=== PATIENT | female | born 1990 | race Two or more races ===

== ENCOUNTER 2024-10-05 22:13 | Inpatient (IN) | payer MEDICAID, SELFPAY ==
[2024-10-05 22:26] VITALS: BP 146/85; PULSE 86; RESP 18; TEMP 36.9; O2SAT 99; BMI 25.3
--- NOTE | 2024-10-05 22:31 | XR_ITS ---
Examination: Abdomen sonogram, Limited Date and time of exam: October 06, 2024 0038 hrs. Indications: Epigastric pain beginning 4 days ago Technique: Real-time riley scale transabdominal sonographic images of the upper abdomen obtained. Findings: Multiple gallstones Normal gallbladder wall Common bile duct enlarged 0.9 cm Pancreatic head 2.3 cm Liver 15.6 cm no focal liver lesions Normal hepatopedal portal venous flow Patent IVC Impression: Cholelithiasis, negative for cholecystitis Consider MRCP follow-up to assess the abnormally enlarged common bile duct and exclude small common bile duct stones
--- NOTE | 2024-10-05 22:32 | EDRME_ITS ---
Rapid Medical Screening Exam [facility] Arrival date/time: 10/05/24 22:13 34F with no significant PMH presents to ED with several days of RUQ/epigastric pain. Chief Complaint: Abdominal Pain Vital signs: Vital Signs Temperature 98.5 F 10/05/24 22:26 Pulse Rate 86 10/05/24 22:26 Respiratory Rate 18 10/05/24 22:26 Blood Pressure 146/85 H 10/05/24 22:26 Pulse Oximetry (%) 99 10/05/24 22:26 Oxygen Delivery Method Room Air 10/05/24 22:26
[2024-10-05 23:10] LABS: Basophils % (Auto) 1 % (0-2.5); Eosinophils # (Auto) 0.1 Thou/mm3 (0.0-0.5); Eosinophils % (Auto) 1 % (0-10); Hematocrit 39.7 % (36.0-46.0); Hemoglobin 13.8 g/dL (12.0-16.0); Immature Granulocytes % (Auto) 0 % (0-0); Immature Granulocytes Auto 0.02 Thou/mm3 (0.00-0.00); Lymphocytes # (Auto) 2.4 Thou/mm3 (1.0-4.8); Lymphocytes % (Auto) 36 % (10-50); Mean Corpuscular HGB Conc 34.8 g/dl (31.0-37.0); Mean Corpuscular Hemoglobin 31.5 pg (25.0-35.0); Mean Corpuscular Volume 91 fL (80-100); Monocytes # (Auto) 0.4 Thou/mm3 (0.0-0.8); Monocytes % (Auto) 6 % (0-12); Neutrophils # (Auto) 3.6 Thou/mm3 (1.8-7.7); Neutrophils % (Auto) 55 % (37-80); Nucleated Red Blood Cell % 0 /100 WBC (0); Platelet Count 294 Thou/mm3 (140-440); RDW Standard Deviation 42.6 fL (36.4-46.3); Red Blood Count 4.38 Miln/mm3 (4.00-5.20); White Blood Count 6.6 Thou/mm3 (3.6-11.0)
[2024-10-05 23:25] LABS: HCG Qualitative,Urine Negative
[2024-10-05] MEDS: HYDROcodone/APAP 5/325 TABLET 1 TAB PO (23:34)
[2024-10-05 23:38] LABS: Albumin, Serum 5.3 gm/dL (3.5-5.0); Albumin/Globulin Ratio 1.7 (1.2-2.2); Alkaline Phosphatase 186 U/L (46-116); Anion Gap 8 (7-16); Aspartate Amino Transferase 817 U/L (0-34); BUN/Creatinine Ratio 13 Ratio (12-20); Blood Urea Nitrogen 10 mg/dL (9-23); Calcium 10.1 mg/dL (8.3-10.6); Calcium (Corrected) 10.1 mg/dL (8.5-10.1); Carbon Dioxide 24.3 mMol/L (20.0-31.0); Chloride 104 mMol/L (98-107); Creatinine (Component) 0.8 mg/dL (0.6-1.3); Estimated Creatinine Clearance 88.9 mL/min (>60); Globulin 3.2 gm/dL (2.3-3.5); Glucose 110 mg/dL (74-106); Lipase 127 U/L (12-53); Osmolality,Calculated 271 (275-295); Potassium 3.3 mMol/L (3.4-5.1); Sodium 136 mMol/L (136-145); Total Protein 8.5 gm/dL (5.7-8.2); eGFR > 60 See Note
[2024-10-05 23:58] LABS: Alanine Aminotransferase 1270 U/L (10-49)
[2024-10-06] VITALS (7 sets, daily range): BP systolic 91–131; BP diastolic 61–82; PULSE 68–86; RESP 16–19; TEMP 36.5–37.2; O2SAT 95–100; BMI 23.7
--- NOTE | 2024-10-06 | XR_ITS ---
MRI abdomen, without contrast. MRCP Date and time of exam: October 06, 2024 at 0855 hours INDICATIONS: Right upper abdominal pain beginning 4 days ago, small gallstones and enlarged common bile duct on gallbladder sonogram October 06, 2024 Technique: Multiple axial and coronal images of the abdomen have been obtained with the Siemens 1.5T MRI scanner. Images obtained included T1 weighted transverse images, T2-weighted transverse images, T2-weighted transverse images fat-suppressed, T2 weighted haste fat suppressed transverse images, T1 weighted images, in and out of phase images, T2-weighted coronal images, breath hold, T2 weighted haze coronal images as well as T2 weighted coronal thick slab images, MRCP. Findings: No focal liver lesions Multiple gallstones, no gallbladder wall edema Common bile duct 8 mm Filling defects in the distal common bile duct axial image 18 consistent with small stones with abrupt termination of the duct Edema surrounding the pancreas No pseudocyst Spleen not enlarged No hydronephrosis IMPRESSION: Cholelithiasis, negative for cholecystitis Enlarged common bile duct with small 2 mm stones in the distal common bile duct and abrupt termination of the distal common bile duct, recommend ERCP follow-up Acute pancreatitis
--- NOTE | 2024-10-06 02:25 | PRELIM_ITS ---
Right upper quadrant abdominal ultrasound with Limited Doppler. October 06, 2024 0038 hours Clinical history: RUQ/epigastric pain No prior study is available for comparison. Findings:The liver demonstr ates increase in echogenicity and appears slightly heterogenous. No intrahepatic biliary ductal dilat ation. The main portal vein is patent and demonstrates hepatopetal flow. The gallbladder is distended . Numerous echogenic foci are seen in the gallbladder. No gallbladder wall thickening or pericholecys tic fluid is demonstrated. Sonographic Orourke sign is positive as per the technologist's note. The co mmon bile duct is dilated, measuring 0.9 cm. No calculus is demonstrated in the common bile duct to the extent visualized. The pancreas is unremarkable to the extent visualized. The inferior vena cava is unremarkable to the extent visualized. Impression:Cholelithiasis with a positive sonographic Kyrie y sign. Recommend clinical correlation. Mildly dilated common bile duct. Recommend clinical correlati on and further evaluation with MRCP, if clinically indicated. Fatty slightly heterogenous liver. Repo rt Electronically Signed By: Clayton Sesay 10/06/2024 2:24:06 AM [EST]
--- NOTE | 2024-10-06 04:09 | PD.EDABDPN ---
ED Abdominal Pain RME/HPI General Chief Complaint: Abdominal Pain Stated complaint: EPIGASTRIC PAIN Arrival date/time: 10/05/24 22:13 RME / HPI RME / HPI narrative: 10/05/24 22:13 34F with no significant PMH presents to ED with several days of RUQ/epigastric pain. ----- Dr. Sanchez's Main ED Evaluation: 34yo female with no significant past medical history presents to the ED for complaints of epigastric and RUQ pain. Patient states her pain initially started on Thursday, reporting it subsided on its own. She states her pain returned significantly worse yesterday (Thursday), reporting it radiated to the chest and back and worsens when she breathes. She reports one associated emetic episode, sweating, and UTI symptoms. She denies any diarrhea, fever, chills, chest pain, cough or any other associated symptoms. She endorses having similar symptoms in October of last year. Denies any tobacco or alcohol use. No known allergies. Patient gave via earlier this year, but is not breast-feeding at this time. Patient currently rates her pain a 1-2 out of 10 in severity. PCP: located in [facility] Home Medications ?Medication ?Instructions ?Recorded ?Confirmed nifedipine 10 mg capsule 10 mg PO Q6H PRN Pain 02/08/24 02/08/24 Allergies Allergy/AdvReac Type Severity Reaction Status Date / Time No Known Allergies Allergy Verified 02/08/24 20:14 Review of Systems Review of Systems Systems Reviewed: All systems reviewed, normal except as documented Narrative Review of Systems: Gen: No fever, no chills, no weight loss, + sweating EYES: No discharge, no visual changes, no pain HEENT: No ear pain, no congestion, no sore throat PULM: No shortness of breath, no cough, no congestion CV: No chest pain, no dyspnea on exertion, no palpitations GI: + nausea, + vomiting, no diarrhea, + pain, no constipation : No frequency, no urgency, + dysuria Musc/skel: No joint pain, no back pain Skin: No rash. Warm and dry. Psyc: No hallucinations, no depression Heme/Lymph: No easy bleeding or bruising tendencies Neuro: No weakness, no headache Past Medical History Past Medical History CARDIAC: Negative Congestive Heart Failure RESPIRATORY: Negative Chronic Obstructive Pulmonary Disease (COPD) GENITOURINARY: Negative Renal Disease ENDOCRINE: Negative Diabetes Mellitus Type 1 or Diabetes Mellitus Type 2 Surgical History SURGICAL: Positive Section Social History SMOKING STATUS: Never smoker ED Exam Narrative Physical exam: GEN. APPEARANCE: Patient is alert awake oriented x3 under no distress, laying down comfortably at 30-45?; does not look ill/ toxic. Patient has good eye contact. Patient is cooperative. VITALS: All vitals were reviewed and the pulse ox is 100% on room air, which is normal according to my interpretation. HEENT: Normocephalic, atraumatic and nontender. Pupils are equal and reactive to light and accommodation. Oral mucosa are moist. NECK: Supple, nontender, no meningismus, no JVD. CHEST: Nontender on palpation, no deformity and no crepitus. CARDIOVASCULAR: Heart regular rhythm no murmur or gallop rub or extra beats; not tachycardic. LUNGS: Clear to auscultation bilaterally with symmetrical chest rise. No laboring tachypnea or wheezing. No intercostal subcostal retraction. No rales and no rhonchi. ABDOMEN: Soft, flat, epigastric and mainly RUQ tenderness at Orourke's point with minimal guarding, but no rebound tenderness. There's no left-sided abdominal tenderness. There's no reverse rebound from the left to the right. There are no abnormal masses palpated. GENITALIA: Not examined. RECTAL EXAM: Not done. EXTREMITIES: Nontender. No edema. No cyanosis. Patient is able to move all 4 extremities well. SKIN: Warm and dry, no rashes noted. MUSCULOSKELETAL: No lumbar or midline bony tenderness. There is no CVA tenderness. No paraspinal muscle spasm or tenderness. NEURO: Cranial nerves II through XII grossly intact. There is no focalization. GCS is 15. PSYCHIATRIC: Patient is in normal mood and affect, cooperative. LYMPHATICS: No major lymphadenopathy noted. Course Quality Measures none Orders Category Date Time Status US gall bladder Stat Exams 10/05/24 22:31 Taken CBC Stat Lab 10/05/24 22:53 Completed CMP [Comprehensive Metabolic Panel] Stat Lab 10/05/24 22:53 Completed HCG Qualitative,Urine Stat Lab 10/05/24 22:40 Completed Lipase Stat Lab 10/05/24 22:53 Completed UA, C/S IF [Urinalysis, C/S if Indicated] Stat Lab 10/06/24 01:32 Ordered HYDROcodone*/APAP 5/325 [[place] 5/325] Med 10/05/24 23:17 Discontinued 1 tab PO X1 ONE Vital Signs Vital signs: Vital Signs Temperature 98.5 F 10/05/24 22:26 Pulse Rate 86 10/05/24 22:26 Respiratory Rate 18 10/05/24 22:26 Blood Pressure 146/85 H 10/05/24 22:26 Pulse Oximetry (%) 99 10/05/24 22:26 Oxygen Delivery Method Room Air 10/05/24 22:26 Abdominal Pain MDM MDM Narrative MDM Narrative:: Scribe Attestation: 10/06/24 - Arlette Coates am scribing for and in the presence of Dr. Sanchez. Patient comes in accompanied by her stating that she has got epigastric and right upper quadrant pain which started on 10/02/2024, lasted 1 day and then it quit to return much stronger since 10/05/2020 4 in the afternoon and at night it became intolerable therefore she came in for evaluation. She states that the pain is constant dull achy and radiates to her back and it gets worse also with breathing. She says that the pain radiates to her anterior chest but no shortness of breath or coughing. She vomited once only without any blood in. No diarrhea. She was sweating but no fever chills. She had mild burning on urination. Patient states that she had a similar episode of this pain in October 2023 while she was and she came to this emergency room. Looking at her old records, there is no previous blood test nor any ultrasound done on her here at that time. Patient is 1 para 0 and she had a delivery and she is not breast-feeding at this time. Today, her CBC is normal with a white count of 6.6 and a normal differential and an H&H of 13.8 and 39. Her chemistries show that she has significant elevation of her LFTs with total bilirubin at 2.0, AST of 817 and ALT of 1270, her alkaline phosphatase is also elevated at 186. Her lipase is also elevated at 127. Her test is negative. Ultrasound of the right upper quadrant shows cholelithiasis with a positive sonographic Orourke sign. The telemetry radiologist says that the common bile duct is dilated measuring 0.9 cm. No calculus is demonstrated in the common bile duct. Based on this, we need to keep this lady here until in the morning to get an MRCP. Patient is willing to stay as she is in no pain distress. Provider Notation: Although this document has been carefully reviewed, there may still be some phonetic and other typographical errors. These errors are purely grammatical due to imperfections in the software program and should not be construed in any way to compromise the substance of the patient's medical care during this visit. Patient data External records reviewed:: [facility] previous records (Per chart review, patient has no previous ED visits to this facility.) Clinical information provided by:: patient Social determinants that could affect healthcare access:: none Patient has the following chronic illnesses:: none How is presenting disease/condition affected by chronic disease/condition?: no chronic disease Evaluation data The following diagnostics were reviewed and interpreted by me:: lab results and radiology exam(s) Lab and/or radiology exams considered but not ordered:: none Interpretation Summary: See above under MDM narrative. ------ [facility] Preliminary Report Draft Patient: JUSTYN WAN. Record#: [id number] Birthdate: 1990 Age/Sex: 34 / F Location: [facility] Attending Dr: Ordering Physician: Date of Service: Procedure(s): Accession Number(s): cc: ~ Right upper quadrant abdominal ultrasound with Limited Doppler. October 06, 2024 0038 hours Clinical history: RUQ/epigastric pain No prior study is available for comparison. Findings: The liver demonstrates increase in echogenicity and appears slightly heterogenous. No intrahepatic biliary ductal dilatation. The main portal vein is patent and demonstrates hepatopetal flow. The gallbladder is distended. Numerous echogenic foci are seen in the gallbladder. No gallbladder wall thickening or pericholecystic fluid is demonstrated. Sonographic Orourke sign is positive as per the technologist's note. The common bile duct is dilated, measuring 0.9 cm. No calculus is demonstrated in the common bile duct to the extent visualized. The pancreas is unremarkable to the extent visualized. The inferior vena cava is unremarkable to the extent visualized. Impression: Cholelithiasis with a positive sonographic Orourke sign. Recommend clinical correlation. Mildly dilated common bile duct. Recommend clinical correlation and further evaluation with MRCP, if clinically indicated. Fatty slightly heterogenous liver. Report Electronically Signed By: Clayton Sesay 10/06/2024 2:24:06 AM [EST] Medications / Prescriptions Medications or Prescriptions considered but not ordered:: none Medication administrations:: Medication Administration History Discontinued Medications Hydrocodone Bitart/Acetaminophen (Hydrocodone/[place] 5/325 Tablet) 1 tab PO X1 ONE Stop: 10/05/24 23:18 Last Admin: 10/05/24 23:34 Dose: 1 tab Documented By: CVL see above Consultations Consultation(s) initiated? (list below): No Diagnosis Differential diagnosis abdominal pain: acute appendicitis, pancreatitis and other (gallbladder colic, cholecystitis, ascending cholangitis) Most likely diagnosis given after review of the tests above:: final dx pending at sign out Admission Indicated Admission indicated?: not indicated Admission Request Was there a request for admission?: No Disposition Plan Disposition Plan: other (specify) (Signed out to the next provider at 0600 pending MRCP in the morning.) Discharge Plan Plan Patient Disposition: HOME (Self Care) Prescriptions/Referrals Prescriptions/Med Rec: No Action nifedipine [Procardia] 10 mg Capsule 10 mg PO Q6H PRN (Reason: Pain) Referrals: No Primary/Family,Physician [Primary Care Provider] - In 1 week Problem List Clinical Impression: Abdominal pain, Cholelithiasis, Elevated LFTs, Common bile duct dilation Patient/Caregiver Discharge Instructions Print Language: [place] Stand Alone Forms: [facility] Award Info., Patient Portal Info Letter
[2024-10-06 05:37] LABS: Collection Type, Urine Clean Catch; RBC,Urine 0 /hpf (0-3); WBC,Urine 0 /hpf (0-5)
[2024-10-06 05:44] LABS: Bacteria,Urine Rare; Bilirubin,Urine Negative (Negative); Blood,Urine Negative (Negative); Clarity,Urine Clear (Clear/Hazy); Color,Urine Yellow (Lt Yel-Yel); Culture Indicated,Urine Not Indicated; Glucose, Urine Negative (Negative); Ketones,Urine 1+ (Negative); Leukocyte Esterase,Urine Negative (Negative); Nitrite,Urine Negative (Negative); PH,Urine 7.5 (5.0-7.0); Protein,Urine Negative (Neg - Trace); Specific Gravity,Urine 1.011 (1.001-1.035); Squamous Epithelial Cell,Urine 4 /hpf (0-5); Urobilinogen,Urine Negative mg/dL (0.0-1.0)
--- NOTE | 2024-10-06 06:29 | PD.EDADDENDU ---
Emergency Room Addendum <Valarie Sauceda - Last Filed: 10/06/24 10:11> Addendum Narrative: 0600: Care assumed from Dr. Snachez, the previous shift emergency physician. Past medical, surgical, social and family history reviewed. Vitals and home medications reviewed. I will assume the care of the patient at this time, pending MRCP. Please refer to the emergency department record for history and examination from initial visit.? Nursing notes reviewed by me. Vital signs reviewed by me. [place] medical records reviewed by me. 1000: I spoke with GI Dr. Daniel. Discussed patients PMHx, HPI, ED course, exam findings, labs, and radiology results. He agrees to consult. 1005: I spoke with Dr. Avila regarding admission. Discussed patients PMHx, HPI, ED course, exam findings, labs, and radiology results. They accept patient for admission. RADIOLOGY Ordering Physician: Win Sanchez MD Date of Service: 10/06/24 Procedure(s): MR MRCP Accession Number(s): [id number] cc: Win Sanchez MD; Gagandeep Sparrow MD; NO PRIMARY/FAMILY,PHYSICIAN~ MRI abdomen, without contrast. MRCP Date and time of exam: October 06, 2024 at 0855 hours INDICATIONS: Right upper abdominal pain beginning 4 days ago, small gallstones and enlarged common bile duct on gallbladder sonogram October 06, 2024 Technique: Multiple axial and coronal images of the abdomen have been obtained with the Siemens 1.5T MRI scanner. Images obtained included T1 weighted transverse images, T2-weighted transverse images, T2-weighted transverse images fat-suppressed, T2 weighted haste fat suppressed transverse images, T1 weighted images, in and out of phase images, T2-weighted coronal images, breath hold, T2 weighted haze coronal images as well as T2 weighted coronal thick slab images, MRCP. Findings: No focal liver lesions Multiple gallstones, no gallbladder wall edema Common bile duct 8 mm Filling defects in the distal common bile duct axial image 18 consistent with small stones with abrupt termination of the duct Edema surrounding the pancreas No pseudocyst Spleen not enlarged No hydronephrosis IMPRESSION: Cholelithiasis, negative for cholecystitis Enlarged common bile duct with small 2 mm stones in the distal common bile duct and abrupt termination of the distal common bile duct, recommend ERCP follow-up Acute pancreatitis Dictated By: Gagandeep Sparrow MD Signed By: <Electronically signed by Gagandeep Sparrow MD in [place]> 10/06/24 0936 <Williams Gallardo MD - Last Filed: 10/06/24 13:08> Addendum Narrative: 0600: Care assumed from Dr. Sanchez, the previous shift emergency physician. Past medical, surgical, social and family history reviewed. Vitals and home medications reviewed. I will assume the care of the patient at this time, pending MRCP. Please refer to the emergency department record for history and examination from initial visit.? Nursing notes reviewed by me. Vital signs reviewed by me. [place] medical records reviewed by me. My review of the MRCP report is: Cholelithiasis, negative for cholecystitis. Enlarged common bile duct with small 2 mm stones in the distal common bile duct and abrupt termination of the distal common bile duct. Acute pancreatitis. I discussed the case with our GI and our hospitalist. About the presentation and exam and diagnostics and treatments here. And need of further care in the hospital. Will accept the patient. 1000: I spoke with GI Dr. Daniel. Discussed patients PMHx, HPI, ED course, exam findings, labs, and radiology results. He agrees to consult. 1005: I spoke with Dr. Avila regarding admission. Discussed patients PMHx, HPI, ED course, exam findings, labs, and radiology results. They accept patient for admission. Jin Paulina, MD
--- NOTE | 2024-10-06 07:29 | PC.NURSE ---
Received report and assumed care of patient. Patient resting in bed with no signs of distress with no complaints.
[2024-10-06] MEDS: POTASSIUM CHLORIDE 10% 20 MEQ/15 ML UDC PO (08:51)
[2024-10-06 10:53] LABS: C-Reactive Protein < 0.4 mg/dL (0.0-0.9); Triglycerides 75 mg/dL (30-150)
[2024-10-06] MEDS: PIPER/TAZO INJ 3.375 GM in SODIUM CHLORIDE 0.9% (P) 50 ML IV (10:54)
[2024-10-06] MEDS: MORPHINE SULF INJ 10 MG/ML VIAL 4 MG IVP (10:55)
--- NOTE | 2024-10-06 11:30 | PD.IMCONS ---
HPI Data of Consult Primary Care Provider: Physician No Primary/Family Consult Narrative cc:: CC: Abdominal pain HPI: Pt is a 34 year old female with no significant past medical history with complaints of epigastric and RUQ pain. Patient states her pain initially started on Thursday, reporting it subsided on its own. Her pain became worse. She reports one associated emetic episode, sweating, and UTI symptoms. She denies any diarrhea, fever, chills, chest pain, cough or any other associated symptoms. She endorses having similar symptoms in October of last year. Denies any tobacco or alcohol use. No known allergies. No other associated symptoms. Meds Home Medications and Allergies Home Medications ?Medication ?Instructions ?Recorded ?Confirmed ?Type nifedipine 10 mg capsule 10 mg PO Q6H PRN Pain 02/08/24 02/08/24 History Allergies Allergy/AdvReac Type Severity Reaction Status Date / Time No Known Allergies Allergy Verified 02/08/24 20:14 Exam Vital Signs Temp Pulse Resp BP Pulse Ox O2 Del Method 98.9 F 86 17 119/69 100 Room Air 10/06/24 10:00 10/06/24 10:00 10/06/24 10:00 10/06/24 10:00 10/06/24 10:00 10/06/24 10:00 Results Labs 10/05/24 22:53 10/05/24 22:53 Labs: Short CBC 10/05/24 Range/Units 22:53 WBC 6.6 (3.6-11.0) Thou/mm3 Hgb 13.8 (12.0-16.0) g/dL Hct 39.7 (36.0-46.0) % Plt Count 294 (140-440) Thou/mm3 BMP 10/05/24 22:53 Sodium 136 Potassium 3.3 L Chloride 104 Carbon Dioxide 24.3 BUN 10 Creatinine 0.8 Glucose 110 H Calcium 10.1 Liver Function 10/05/24 Range/Units 22:53 Total Bilirubin 2.0 H (0.3-1.2) mg/dL AST 817 H* (0-34) U/L ALT 1270 H* (10-49) U/L Alkaline Phosphatase 186 H (46-116) U/L Albumin 5.3 H (3.5-5.0) gm/dL Urine 10/06/24 Range/Units 01:32 Urine Color Yellow (Lt Yel-Yel) Urine Clarity Clear (Clear/Hazy) Urine pH 7.5 H (5.0-7.0) Ur Specific [place] 1.011 (1.001-1.035) Urine Protein Negative (Neg - Trace) Urine Glucose (UA) Negative (Negative) Assessment and Plan Additional Assessment & Plan Additional Plan: 34 year old female with no significant past medical history with complaints of epigastric and RUQ pain MRI: Showed pancreatitis and small stone in CBD CRP normal WBC normal Start CLD Start Dru QID Will not proceed with ERCP at this point as pt has pancreatitis LR 250 cc/hr Check Labs daily Might consider ERCP early next week as pancreatitis resolves Might repeat MRCP prior to ERCP Will follow
[2024-10-06] MEDS: DEXTROSE 5%-LACTATED RINGERS 1,000 ML 250 ML IV (12:22)
[2024-10-06] MEDS: MORPHINE SULF INJ 10 MG/ML VIAL IVP (13:21)
[2024-10-06] MEDS: ursodioL 300 MG CAPSULE PO ×3 (13:55→21:18)
--- NOTE | 2024-10-06 14:21 | ESHP_ITS ---
<Statement entered by Shannon Munroe MD - 10/07/24 20:02> Patient is a 34-year-old female with past medical history significant for previous presented to the ED with acute abdominal pain for the last few days that progressively worsened and will be admitted for further management of gallstone pancreatitis. Dr. Daniel, urban anthropologist specialist was consulted and will plan to do ERCP early next week after pancreatitis has resolved. Patient will be on aggressive IV fluids at 250 cc an hour and will advance diet as tolerated, and provide pain regimen. Patient will also be on IV meropenem and will consult ID for further recommendations. Continue to monitor daily electrolytes and daily labs. I discussed with and supervised the phd internship physician who took care of this patient. I personally saw and examined the patient and discussed the assessment and plan with the entire medicine team, including my attending , I agree with most of the assessment and plan as documented below Shannon Munroe M.D. PGY-2 Documentation for date of: 10/06/24 HPI History of Present Illness Chief complaint: Gallstone pancreatitis History of present illness: 34-year-old female (1 ) with no significant past medical history presented to the ED on 10/05 with acute abdominal pain which initially started on Tuesday 10/02 and initially waxed and waned but has progressively worsened. Patient states that about 2 weeks ago she started having some GI symptoms (abdominal pain, nausea) and she was seen by her PCP who told her she has gastritis and prescribed famotidine. Patient's pain subsided but on Tuesday 10/02 the pain was unbearable but she did not seek emergency medical care at that time as the pain waxed and waned. Pain resurfaced on the night of 10/05 and so she decided to present to the ED. Patient states that she has similar episode back pain October 2023 while she was ; she went to the hospital, which point they told her she was having contraction pains and prescribed to her antibiotics and apparently her pain subsided afterwards. Patient denies having any concerning medical history, denies travel, denies any sick contacts, denies any melena, hematochezia, vomiting or diarrhea. Patient does state that she did have some nausea, some dysuria an episode of vomiting when the pain was at its peak. Medical history: No significant history Surgical history: 1 Medications: No prescribe medications, does not take any vitamins or supplements Allergies: NKDA Family history: Noncontributory Social history: Patient lives in [place] with her , [id number] and daughter. Patient does not work and takes care of her child. Patient denies smoking tobacco, alcohol use or any illicit drug use ROS: All 12 systems assessed and the patient denies unless otherwise stated in the HPI In the ED, patient presented hypertensive (146/85), rest of vitals within normal limits, CBC within normal limits, CMP shows potassium 3.3, calcium 10.1, LFTs showed T. bili 2.0, AST 817, ALT 1270, alk phos 186, lipase 127, urine hCG negative, urine analysis negative for any signs of UTI, U-Tox negative. Gallbladder ultrasound showed cholelithiasis but negative for any cholecystitis and MRCP confirmed cholelithiasis with an enlarged common bile duct with small 2 mm stones in the distal common bile duct with abrupt termination of the distal common bile duct Patient will be admitted to the hospitalist team; Dr. Daniel (gastroenterology) has been consulted and will plan to do ERCP for choledocholithiasis once patient's pancreatitis has subsided, general surgery and infectious disease are also consulted and are following. Exam Vital Signs Temp Pulse Resp BP Pulse Ox O2 Del Method 98.6 F 83 18 110/73 98 Room Air 10/06/24 12:10/06/24 12:10/06/24 12:10/06/24 12:10/06/24 12:10/06/24 12:01 Narrative Exam Physical Exam: GENERAL: Awake, answering questions in bengali, appears stated age HEENT: NC/AT. Moist mucosa. PERRLA/EOMI. CARDIO: Heart RRR, no obvious murmurs, no JVD. PULM: No coughing or visible SOB. Lungs CTA B/L. GI: Abdomen soft but tender to palpate in RUQ and epigastric area; no tenderness noted elsewhere. Non distended, no rigidity. Borborygmi apparent SKIN/MSK/EXT: No wounds/discoloration/rashes/edema/amputations noted. +Pedal pulses present B/L. NEURO: Oriented x3, central supply technician strength 5/5, Moves extremities x4. Results: Labs 11/22/24 05:40 10/07/24 05:40 Labs: Short CBC 10/05/24 Range/Units 22:53 WBC 6.6 (3.6-11.0) Thou/mm3 Hgb 13.8 (12.0-16.0) g/dL Hct 39.7 (36.0-46.0) % Plt Count 294 (140-440) Thou/mm3 BMP 10/05/24 22:53 Sodium 136 Potassium 3.3 L Chloride 104 Carbon Dioxide 24.3 BUN 10 Creatinine 0.8 Glucose 110 H Calcium 10.1 Liver Function 10/05/24 Range/Units 22:53 Total Bilirubin 2.0 H (0.3-1.2) mg/dL AST 817 H* (0-34) U/L ALT 1270 H* (10-49) U/L Alkaline Phosphatase 186 H (46-116) U/L Albumin 5.3 H (3.5-5.0) gm/dL Urine 10/06/24 Range/Units 01:32 Urine Color Yellow (Lt Yel-Yel) Urine Clarity Clear (Clear/Hazy) Urine pH 7.5 H (5.0-7.0) Ur Specific [place] 1.011 (1.001-1.035) Urine Protein Negative (Neg - Trace) Urine Glucose (UA) Negative (Negative) Quality Measures Quality Measures none Medications Home Medications and Allergies Home Medications ?Medication ?Instructions ?Recorded ?Confirmed ?Type No Known Home Medications 10/06/24 10/06/24 History Allergies Allergy/AdvReac Type Severity Reaction Status Date / Time No Known Allergies Allergy Verified 02/08/24 20:14 Visit Medications Acetaminophen (Acetaminophen 325 Mg Tablet) 650 mg PO Q6HR PRN PRN Reason: Pain 1-3 and/or Fever >100.1 Stop: 11/05/24 11:46 Hydrocodone Bitart/Acetaminophen (Hydrocodone/Apap 5/325 Tablet) 1 tab PO Q4HR PRN PRN Reason: Pain 4-6 Stop: 10/11/24 11:45 Meropenem 1,000 mg/ Sodium (Chloride) 50 mls @ 100 mls/hr IV Q12HR AMADOR Stop: 10/13/24 20:59 Dextrose/Lactated Ringer's (D5-Lr) 1,000 mls @ 250 mls/hr IV .Q4H AMADOR Stop: 10/06/24 15:59 Last Admin: 10/06/24 12:22 Dose: 250 mls/hr Sodium Chloride (Ns) 1,000 mls @ 250 mls/hr IV .Q4H AMADOR Stop: 10/07/24 15:59 Morphine Sulfate (Morphine Sulf Inj 10 Mg/Ml Vial) 1 mg IVP Q3HR PRN PRN Reason: Pain 7-10 Last Admin: 10/06/24 13:21 Dose: 1 mg Ursodiol (Ursodiol 300 Mg Capsule) 300 mg PO QID AMADOR Stop: 11/05/24 11:59 Last Admin: 10/06/24 13:55 Dose: 300 mg Discontinued Medications Hydrocodone Bitart/Acetaminophen (Hydrocodone/Apap 5/325 Tablet) 1 tab PO X1 ONE Stop: 10/05/24 23:18 Last Admin: 10/05/24 23:34 Dose: 1 tab Piperacillin Sod/Tazobactam (Sod 3.375 gm/ Sodium Chloride) 50 mls @ 100 mls/hr IV X1 ONE Stop: 10/06/24 10:32 Last Infusion: 10/06/24 11:35 Dose: Infused Lactated Ringer's (Lactated Ringers) 1,000 mls @ 250 mls/hr IV .Q4H ONE Stop: 10/06/24 14:02 Last Admin: 10/06/24 12:21 Dose: Not Given Potassium Chloride (Kcl Ivpb) 10 meq in 100 mls @ 100 mls/hr IV Q1H AMADOR Stop: 10/06/24 18:10 Sodium Chloride (Ns) 1,000 mls @ 250 mls/hr IV .Q4H AMADOR Stop: 10/06/24 18:15 Morphine Sulfate (Morphine Sulf Inj 10 Mg/Ml Vial) 4 mg IVP X1 ONE Stop: 10/06/24 10:17 Last Admin: 10/06/24 10:55 Dose: 4 mg Potassium Chloride (Potassium Chloride 10% 20 Meq/15 Ml Udc) 20 meq PO X1 ONE Stop: 10/06/24 07:35 Last Admin: 10/06/24 08:51 Dose: 20 meq Assessment & Plan Plan 34-year-old female (1 ) with no significant past medical history presented with acute abdominal pain will be admitted to the hospitalist team; Dr. Daniel (gastroenterology) has been consulted and will plan to do ERCP for choledocholithiasis once patient's pancreatitis has subsided, general surgery and infectious disease are also consulted and are following. #Gallstone pancreatitis #Choledocholithiasis #Cholelithiasis #Elevated liver enzymes Patient presented with acute abdominal pain radiating to the back which started on Thursday and has progressively worsened Tbili 2.0, AST 817, ALT 1270, alk phos 186 Gallbladder ultrasound showed cholelithiasis but negative for any cholecystitis MRCP confirmed cholelithiasis with an enlarged common bile duct with small 2 mm stones in the distal common bile duct with abrupt termination of the distal common bile duct Plan: Dr. Daniel, GI, consulted appreciate recommendations Plan is to do ERCP once the patient's pancreatitis is better controlled Patient on ursodiol and meropenem per Dr. Fredy Chacon, general surgery, consulted appreciate recommendations Dr Chacon will see the patient after ERCP is completed Dr Mercado, ID, consulted secondary to meropenem being ordered, appreciate recommendations #Pancreatitis Patient presented with acute abdominal pain radiating to the back with MRCP read showing acute pancreatitis Lipase 126 Abbie's criteria of 1 severe pancreatitis unlikely based off the following In the ED, patient recieved x1 Zosyn, a total of 5mg of morphine and 1L of LR Plan: Aggressive IV fluid resuscitation, currently on D5-LR for 1L (250cc/hr) will change to NS for 1L (250cc/hr) Pain controlled with multimodal analgesia #Electrolyte abnormalities Patient has low potassium secondary to acutely ill status and poor p.o. intake secondary to pain Plan: Patient received IV fluid, LR which contains potassium Patient also received po kcl 20mEq x1 Will monitor with a.m. labs Hospital Management: Lines: PIV Bowel regimen: Senna prn Diet: Clear liquid GI prophylaxis: Not needed DVT prophylaxis: Heparin subq Dispo: Treating pancreatitis; pending ERCP for cholelithiasis/choledocholithiasis Code: Full Patient seen and assessed with attending Dr. Avila and senior residents Dr. Alicja Gifford, PGY-1 Attending Provider Attestation/Addendum I have examined the patient, reviewed labs and imaging findings, discussed the case with the resident(s), and reviewed entered orders. I agree with the plan of care as outlined in this note, with these additional summaries/recommendations: Patient is a 34-year-old female with no significant past medical history who presented to [facility] emergency department on 10/06/2024 with chief complaint of abdominal pain. Patient was found to have gallstone pancreatitis, choledocholithiasis, cholelithiasis, and transaminitis. MRCP showed enlarged CBD with small 2 mm stones in distal CBD and abrupt termination as well as pancreatitis. In-house gastroenterology consulted and recommends ERCP at a later date once pancreatitis is more improved. No evidence of cholangitis at this time. Continue aggressive fluid resuscitation for pancreatitis. Started on meropenem and ursodiol. Okay to continue with clear liquid diet for now. Avoid hepatotoxic agents. Mild hypokalemia present and replacement given. Repeat hematology and chemistry panel in AM. Continue pain management. Dr. Avila
--- NOTE | 2024-10-06 14:26 | PC.NURSE ---
Report given to Ludmila DAMIAN in Med Surg.
[2024-10-06 16:25] LABS: LDH (Lactate Dehydrogenase) 413 U/L (120-246)
[2024-10-06] MEDS: SODIUM CHLORIDE 0.9% 1000 ML 1,000 ML 250 ML IV (16:37)
[2024-10-06] MEDS: MEROPENEM INJ 1,000 MG in SODIUM CHLORIDE 0.9% (P) 50 ML 100 MG IV (21:18)
[2024-10-06] MEDS: HEPARIN SOD INJ 5000 UNIT/ML VIAL SC (21:19)
[2024-10-07] VITALS (13 sets, daily range): BP systolic 105–140; BP diastolic 58–84; PULSE 72–123; RESP 13–19; TEMP 36.3–36.7; O2SAT 96–100
[2024-10-07] MEDS: ursodioL 300 MG CAPSULE PO (05:08)
[2024-10-07] MEDS: MEROPENEM INJ 1,000 MG in SODIUM CHLORIDE 0.9% (P) 50 ML 100 MG IV (05:08)
[2024-10-07 05:52] LABS: Calcium, Ionized 4.6 mg/dL (4.6-5.6)
[2024-10-07 06:01] LABS: Basophils % (Auto) 1 % (0-2.5); Eosinophils # (Auto) 0.1 Thou/mm3 (0.0-0.5); Eosinophils % (Auto) 3 % (0-10); Hematocrit 36.3 % (36.0-46.0); Immature Granulocytes % (Auto) 0 % (0-0); Immature Granulocytes Auto 0.01 Thou/mm3 (0.00-0.00); Lymphocytes % (Auto) 57 % (10-50); Mean Corpuscular HGB Conc 33.1 g/dl (31.0-37.0); Mean Corpuscular Hemoglobin 31.3 pg (25.0-35.0); Mean Corpuscular Volume 95 fL (80-100); Monocytes # (Auto) 0.3 Thou/mm3 (0.0-0.8); Monocytes % (Auto) 6 % (0-12); Neutrophils # (Auto) 1.8 Thou/mm3 (1.8-7.7); Neutrophils % (Auto) 34 % (37-80); Nucleated Red Blood Cell % 0 /100 WBC (0); Platelet Count 242 Thou/mm3 (140-440); RDW Standard Deviation 46.1 fL (36.4-46.3); Red Blood Count 3.84 Miln/mm3 (4.00-5.20); White Blood Count 5.3 Thou/mm3 (3.6-11.0)
[2024-10-07 06:15] LABS: INR 1.1 (0.9-1.3); Prothrombin Time 11.7 Seconds (9.0-12.2)
[2024-10-07 06:41] LABS: Alanine Aminotransferase 785 U/L (10-49); Albumin, Serum 4.3 gm/dL (3.5-5.0); Albumin/Globulin Ratio 1.9 (1.2-2.2); Alkaline Phosphatase 149 U/L (46-116); Anion Gap 5 (7-16); Aspartate Amino Transferase 269 U/L (0-34); BUN/Creatinine Ratio 11 Ratio (12-20); Blood Urea Nitrogen 8 mg/dL (9-23); Calcium 9.2 mg/dL (8.3-10.6); Calcium (Corrected) 9.2 mg/dL (8.5-10.1); Carbon Dioxide 24.6 mMol/L (20.0-31.0); Chloride 110 mMol/L (98-107); Creatinine (Component) 0.7 mg/dL (0.6-1.3); Estimated Creatinine Clearance 100.9 mL/min (>60); Globulin 2.3 gm/dL (2.3-3.5); Glucose 89 mg/dL (74-106); Magnesium 2.1 mg/dL (1.6-2.6); Osmolality,Calculated 276 (275-295); Potassium 4.2 mMol/L (3.4-5.1); Sodium 140 mMol/L (136-145); Total Protein 6.6 gm/dL (5.7-8.2); eGFR > 60 See Note
[2024-10-07] MEDS: HEPARIN SOD INJ 5000 UNIT/ML VIAL SC (09:05)
[2024-10-07] MEDS: SODIUM CHLORIDE 0.9% 1000 ML 1,000 ML 125 ML IV ×2 (09:25→20:18)
--- NOTE | 2024-10-07 09:28 | PD.IDPROG ---
Subjective Subjective Interval history: non-necrotizing pancreatitis noted. role of abx in doubt, but often preferred by others, Exam Vital Signs Temp Pulse Resp BP Pulse Ox O2 Del Method 97.7 F 73 16 114/78 98 Room Air 10/07/24 07:25 10/07/24 07:25 10/07/24 07:25 10/07/24 07:25 10/07/24 07:25 10/07/24 07:25 Objective - Internal Medicine Labs 10/07/24 05:40 10/07/24 05:40 Labs: Laboratory Results - last 24 hr 10/06/24 10/07/24 10:17 05:40 WBC 5.3 RBC 3.84 L Hgb 12.0 Hct 36.3 MCV 95 MCH 31.3 MCHC 33.1 RDW Std Deviation 46.1 Plt Count 242 D Neut % (Auto) 34 L Lymph % (Auto) 57 H [place] % (Auto) 6 Eos % (Auto) 3 Baso % (Auto) 1 Neut # (Auto) 1.8 Lymph # (Auto) 3.0 [place] # (Auto) 0.3 Eos # (Auto) 0.1 Baso # (Auto) 0.0 Immature Gran # (Auto) 0.01 H Absolute Nucleated RBC 0.00 Immature Gran % 0 Nucleated RBC % 0 PT 11.7 INR 1.1 Sodium 140 Potassium 4.2 D Chloride 110 H Carbon Dioxide 24.6 Anion Gap 5 L BUN 8 L Creatinine 0.7 Estim Creat Clear Calc 100.9 eGFR > 60 BUN/Creatinine Ratio 11 L Glucose 89 Calculated Osmolality 276 Calcium 9.2 Corrected Calcium 9.2 Ionized Calcium 4.6 Phosphorus 3.0 Magnesium 2.1 Total Bilirubin 1.0 D AST 269 H ALT 785 H* Alkaline Phosphatase 149 H D Lactate Dehydrogenase 413 H C-Reactive Prot, Quant < 0.4 Total Protein 6.6 Albumin 4.3 D Globulin 2.3 Albumin/Globulin Ratio 1.9 Triglycerides 75 Assessment & Plan A&P Narrative non-necrotizing pancreatitis noted eron docholithiasis remove the offending stone if able. if not, refer to location with that capability changed to iv rocephin thru thursday for 5d rx overall as precaution. but with no fever, will not add anaerobic coverage. role of abx in doubt in my view Time Spent With Patient Time: Total time spent is greater than 50% in coordination of care (as documented) at patient's floor/unit and/or counseling patient:
[2024-10-07] MEDS: cefTRIAXone/D5w 1gm IV premix 50 ML IV (10:14)
--- NOTE | 2024-10-07 11:15 | XR_ITS ---
Examination: Operative cholangiogram single view TECHNIQUE: AP portable supine abdomen with opacification of the biliary tree and duodenum Exam date and time: October 07, 2024 12:20 PM INDICATIONS: Postop laparoscopic cholecystectomy FINDINGS: Excellent opacification of the intrahepatic biliary tree common hepatic common bile duct, no stones No obstruction, contrast in the duodenum IMPRESSION: Negative for common hepatic or common bile duct
--- NOTE | 2024-10-07 11:50 | PD.SURCONS ---
HPI Consult details Consult date: 10/07/24 Reason for consultation narrative: Gallstone pancreatitis History of present illness: 34-year-old female presented to the emergency department with acute onset of abdominal pain. Her pain started last week in the epigastric and right upper quadrant area. Her pain was initially intermittent, however over the past 2 days her pain has become persistent, progressively worse and radiating to her back. She has had nausea and vomiting but denies fever, chills, jaundice or discoloration of urine or stool. She denies having similar symptoms in the past with no recent history of trauma. Initially she was noted to have significant elevation of liver enzymes and mild elevation of pancreatic enzymes. Ultrasound revealed multiple gallstones with dilated common bile duct. MRCP showed gallstones with 2 mm stone in CBD with evidence of pancreatitis. Her liver enzymes significantly improved and clinically she is feeling much better. Review of Systems Constitutional Constitutional: Denies chills and Denies fever(s) Cardiovascular Cardiovascular: Denies chest pain Respiratory Respiratory: Denies cough Gastrointestinal Gastrointestinal: Reports abdominal pain, Reports nausea and Reports vomiting Genitourinary Genitourinary: Denies difficulty voiding Hematologic/Lymphatic Hematologic/Lymphatic: Denies easy bleeding and Denies easy bruising Past Medical History Surgical History OTHER SURGICAL HX: Social History SMOKING STATUS: Never smoker SUBSTANCE USE: does not use ALCOHOL: Never Meds Home Medications and Allergies Home Medications ?Medication ?Instructions ?Recorded ?Confirmed ?Type No Known Home Medications 10/06/24 10/06/24 History Allergies Allergy/AdvReac Type Severity Reaction Status Date / Time No Known Allergies Allergy Verified 02/08/24 20:14 Exam Vital Signs Temp Pulse Resp BP Pulse Ox O2 Del Method 97.3 F 97 17 128/78 100 Room Air 10/07/24 11:01 10/07/24 11:01 10/07/24 11:01 10/07/24 11:01 10/07/24 11:01 10/07/24 11:01 Constitutional Constitutional: no acute distress Routine HEENT Exam Eye: Present PERRL (Anicteric sclera) Routine Abdominal Exam Abdominal: Present soft, normoactive bowel sounds and tenderness (Minimal tenderness to deep palpation over right upper quadrant, no rebound tenderness or peritonitis at this time); Absent distended Results Results: Laboratory Laboratory results: results reviewed Results: Imaging Imaging narrative: Abdominal ultrasound and MRCP images reviewed, radiologist interpretation noted Assessment & Plan Problem List (1) Biliary acute pancreatitis without necrosis or infection: Status: Acute Additional Assessment Additional comments: Patient presented with gallstone pancreatitis, most likely she passed the stone Plan Will plan for laparoscopic possible open cholecystectomy with cholangiogram. Risks include but not limited to infection, bleeding, injury to bowel, liver, stomach, bile duct, retained stone, bile leak, abdominal sepsis and or abdominal abscess, need for further procedure and or operation discussed with the patient via american sign language interpreter. Benefits and alternatives explained to her, all her questions answered, she agreed and consented to proceed with the operation.
--- NOTE | 2024-10-07 13:01 | ESOP_ITS ---
Date of Procedure 10/07/24 Pre Op Diagnosis Gallstone pancreatitis Post Op Diagnosis Cholelithiasis with cholecystitis Procedure Laparoscopic cholecystectomy with intraoperative cholangiogram Findings Moderately distended gallbladder with gallstones and chronic cholecystitis. Cholangiogram revealed mildly dilated CBD without obvious stones Procedure Description Patient was brought into the operating room in supine position. After administration of general endotracheal anesthesia abdomen was prepped and draped in standard surgical manner. A Veress needle was inserted through the umbilicus and pneumoperitoneum was obtained up to 15 mmHg. The Veress needle was then removed, a 5 mm infraumbilical incision was made and the 5mm trocar was inserted. Laparoscopic camera was placed. Under direct visualization a laparoscopic camera a 10 mm trocar was placed in subxiphoid and two 5 mm trocars placed in right upper quadrant. The gallbladder was identified and was noted to be moderately distended with gallstones and chronic cholecystitis. It was retracted cephalad and laterally. Dissection started near the infundibulum of gallbladder where cystic duct and gallbladder junction clearly identified. The cystic duct was circumferentially dissected off the peritoneum and surrounding inflammatory tissue. The critical view of safety was clearly demonstrated. An Endo Clip placed near the cystic duct and gallbladder junction and a small ductotomy was performed. Cholangiogram catheter was placed through the ductotomy site and contrast was injected. Cholangiogram x-ray was obtained that revealed filling of contrast into the duodenum, mildly dilated CBD without obvious stones. The cholangiogram catheter was removed and the cystic duct was divided between 2 endoclips proximally and one distally. The cystic artery was divided between 2 endoclips proximally and 1 distally. The gallbladder was then from the liver bed using electrocautery. The gallbladder was then placed inside an Endo Catch and removed from the abdomen utilizing subxiphoid trocar site. The area was copiously and thoroughly washed and irrigated, all the fluid was suctioned and the suction fluid returned clear. Hemostasis achieved using electrocautery. Endoclips noted be in place and intact without any bleeding or any leakage. Hemostasis was adequate and satisfactory. The subxiphoid trocar sites fascial defect was closed with 0 Vicryl using Endo Closure device. Instruments and trocars removed, pneumoperitoneum was evacuated and the incisions closed with 4-0 Monocryl in subcuticular fashion. Instrument needle and sponge counts were all reported to be correct X2. Patient tolerated the procedure well, was extubated, breathing spontaneously and without difficulty and was transferred to postanesthesia care in stable condition. Anesthesia GETA and local Pathology / specimen Other (Gallbladder and contents) Estimated Blood Loss 10 Condition Stable Disposition PACU Surgeon Rober Chacon MD Surgical Staff Operation Date: 10/07/24 12:15 Case Staff MECHANICAL ENGINEERING DIRECTOR: Juan Joseph RN First Assistant: Connie Moralez
--- NOTE | 2024-10-07 13:06 | SUR.PHASEI ---
pt arrived to PACU via gurney drowsy but arouses to verbal commands, breathing unlabored, dressing to abdomen clean, dry, and intact, report from Alex DAMIAN and Houston GONZALEZ
--- NOTE | 2024-10-07 13:32 | ESCONSULT_ITS ---
RE: JUSTYN WAN : 1990 DATE OF CONSULTATION: 10/07/2024 REFERRING PHYSICIAN: Dr. Avila. REASON FOR CONSULTATION: Choledocholithiasis, presumptive non-necrotizing pancreatitis. HISTORY OF PRESENT ILLNESS: The patient is a 34-year-old woman who has no prior significant medical history other than . She is 1, para 1. ALLERGIES: NONE NOTED. IMMUNIZATIONS: Last tetanus is not known. She does not flu shot every year. She has had three COVID vaccines and has not had pneumococcal vaccine. FAMILY HISTORY: Positive for maternal relatives with some sort of health problems, type uncertain. 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 She is a nonsmoker and blood cultures are negative. ASSESSMENT: Presumptive pancreatitis and choledocholithiasis. The patient has gallbladder surgery today that would be fine. It appears that stone present. It should be removed. RECOMMENDATIONS: But for now, I am going to give her Rocephin it may be over treatment with the negative bc, but that would be fine If you want to add flagyl,that would be ok. A few more days of treatment should be sufficient. I will check on her Thursday. DT: 11:01:48 TT: 13:04:00 Ref: [id number] - TID: [id number] MTDD
--- NOTE | 2024-10-07 13:40 | SUR.PHASEI ---
pt drowsy but arouses to verbal commands, breathing unlabored, dressing to abdomen clean, dry, and intact, pt tolerated oral fluids without difficulty swallowing or n/v, report called to Jaylene DAMIAN, pt tranferred to room at this time.
--- NOTE | 2024-10-07 13:50 | PC.NURSE ---
pt to room from surgery. 4x lap sites with dermabond CDI, stable vitals
--- NOTE | 2024-10-07 14:02 | PD.RESPRO ---
Documentation for date of: 10/07/24 Subjective Subjective Interval history: Patient was seen and examined at bedside. No acute events overnight. Patient states that she has no more pain today, no nausea/vomiting, improved appetite but has not had bowel movement for [address] Chacon was consulted and patient underwent cholecystectomy today at 1 PM. Start clear liquid diet and advance as tolerated. Reassess pain if patient is stable and able to tolerate food and may discharge tomorrow. Bilirubin downtrending 1.0, AST ALT downtrending. Vitals unremarkable. Antibiotics no longer needed. Review of systems otherwise negative except what is mentioned above. Exam Vital Signs Temp Pulse Resp BP Pulse Ox O2 Del Method O2 Flow Rate 97.8 F 89 19 127/81 99 Room Air 2 10/07/24 13:36 10/07/24 13:36 10/07/24 13:36 10/07/24 13:36 10/07/24 13:36 10/07/24 11:01 10/07/24 13:21 Narrative Exam GENERAL: Awake, answering questions in french, appears stated age HEENT: NC/AT. Moist mucosa. PERRLA/EOMI. CARDIO: Heart RRR, no obvious murmurs, no JVD. PULM: No coughing or visible SOB. Lungs CTA B/L. GI: Abdomen soft but tender to palpate in RUQ and epigastric area; no tenderness noted elsewhere. Non distended, no rigidity. SKIN/MSK/EXT: No wounds/discoloration/rashes/edema/amputations noted. +Pedal pulses present B/L. NEURO: Oriented x3, risk consulting treasury director strength 5/5, Moves extremities x4. Objective Labs 10/09/24 04:44 10/09/24 04:44 Labs: Laboratory Results - last 24 hr 10/06/24 10/07/24 10:17 05:40 WBC 5.3 RBC 3.84 L Hgb 12.0 Hct 36.3 MCV 95 MCH 31.3 MCHC 33.1 RDW Std Deviation 46.1 Plt Count 242 D Neut % (Auto) 34 L Lymph % (Auto) 57 H [place] % (Auto) 6 Eos % (Auto) 3 Baso % (Auto) 1 Neut # (Auto) 1.8 Lymph # (Auto) 3.0 [place] # (Auto) 0.3 Eos # (Auto) 0.1 Baso # (Auto) 0.0 Immature Gran # (Auto) 0.01 H Absolute Nucleated RBC 0.00 Immature Gran % 0 Nucleated RBC % 0 PT 11.7 INR 1.1 Sodium 140 Potassium 4.2 D Chloride 110 H Carbon Dioxide 24.6 Anion Gap 5 L BUN 8 L Creatinine 0.7 Estim Creat Clear Calc 100.9 eGFR > 60 BUN/Creatinine Ratio 11 L Glucose 89 Calculated Osmolality 276 Calcium 9.2 Corrected Calcium 9.2 Ionized Calcium 4.6 Phosphorus 3.0 Magnesium 2.1 Total Bilirubin 1.0 D AST 269 H ALT 785 H* Alkaline Phosphatase 149 H D Lactate Dehydrogenase 413 H Total Protein 6.6 Albumin 4.3 D Globulin 2.3 Albumin/Globulin Ratio 1.9 Quality Measures Quality Measures none Assessment & Plan Assessment Current Active Medications: Generic Name Dose Route Start Last Admin Trade Name Freq PRN Reason Stop Dose Admin Acetaminophen 650 mg 10/06/24 11:47 Acetaminophen 325 Mg Tablet PO 11/05/24 11:46 Q6HR PRN Pain 1-3 and/or Fever >100.1 Hydrocodone Bitart/Acetaminophen 1 tab 10/06/24 11:46 Hydrocodone/Apap 5/325 Tablet PO 10/11/24 11:45 Q4HR PRN Pain 4-6 Heparin Sodium (Porcine) 5,000 unit 10/06/24 21:00 10/07/24 09:05 Heparin Sod Inj 5000 Unit/Ml Vial SC 10/20/24 20:59 5,000 unit Q12HR AMADOR Administration Sodium Chloride 1,000 mls @ 125 mls/hr 10/07/24 09:13 10/07/24 09:25 Ns IV 10/08/24 09:12 125 mls/hr .Q8H AMADOR Administration Ceftriaxone Sodium/Dextrose 50 mls @ 100 mls/hr 10/07/24 09:26 10/07/24 10:14 Rocephin/D5w 1gm Iv Premix IV 10/10/24 12:00 100 mls/hr QDAY AMADOR Administration Morphine Sulfate 1 mg 10/06/24 11:46 10/06/24 13:21 Morphine Sulf Inj 10 Mg/Ml Vial IVP 1 mg Q3HR PRN Administration Pain 7-10 Ursodiol 300 mg 10/06/24 12:00 10/07/24 11:59 Ursodiol 300 Mg Capsule PO 11/05/24 11:59 Not Given QID AMADOR Plan 34-year-old female (1 ) with no significant past medical history presented with acute abdominal pain will be admitted to the hospitalist team; Dr. Daniel (gastroenterology) has been consulted and will plan to do ERCP for choledocholithiasis once patient's pancreatitis has subsided, general surgery and infectious disease are also consulted and are following. #Gallstone pancreatitis #s/p cholecystectomy #Choledocholithiasis #Cholelithiasis #Elevated liver enzymes Patient presented with acute abdominal pain radiating to the back which started on Thursday and has progressively worsened Tbili 2.0, AST 817, ALT 1270, alk phos 186 Gallbladder ultrasound showed cholelithiasis but negative for any cholecystitis MRCP confirmed cholelithiasis with an enlarged common bile duct with small 2 mm stones in the distal common bile duct with abrupt termination of the distal common bile duct Plan: Dr. Daniel, GI, consulted appreciate recommendations Dr Chacon did laparoscopic cholecystectomy today at 1 PM Abx no longer required Start clear liquid diet and advance as tolerated. Continue pain management Anticipate discharge tomorrow patient is stable and able to tolerate diet #Pancreatitis Patient presented with acute abdominal pain radiating to the back with MRCP read showing acute pancreatitis Lipase 126 Hoyt's criteria of 1 severe pancreatitis unlikely based off the following In the ED, patient recieved x1 Zosyn, a total of 5mg of morphine and 1L of LR Plan: Aggressive IV fluid resuscitation, currently NS for 1L 125ml/hr Pain controlled with multimodal analgesia #Electrolyte abnormalities-resolved Patient has low potassium secondary to acutely ill status and poor p.o. intake secondary to pain Plan: Patient received IV fluid, LR which contains potassium Patient also received po kcl 20mEq x1 Will monitor with a.m. labs Hospital Management: Lines: PIV Bowel regimen: Senna prn Diet: Clear liquid GI prophylaxis: Not needed DVT prophylaxis: Heparin subq Dispo:s/p cholecystectomy. Possible DC tomorrow Code: Full The patient's management plan was discussed with my attending physician Dr. Avila and senior Dr. Helm. Jina Renee, PGY-1 Attending Provider Attestation/Addendum I have examined the patient, reviewed labs and imaging findings, discussed the case with the resident(s), and reviewed entered orders. I agree with the plan of care as outlined in this note. Dr. Avila
[2024-10-07] MEDS: DOCUSATE SOD 100 MG CAPSULE PO (20:18)
[2024-10-08] VITALS: BP 112/63; PULSE 85; RESP 18; TEMP 36.7; O2SAT 95
[2024-10-08 04:00] VITALS: BP 136/81; PULSE 84; PULSE 98; RESP 18; TEMP 36.2; O2SAT 99
[2024-10-08] MEDS: SODIUM CHLORIDE 0.9% 1000 ML 1,000 ML 125 ML IV (05:32)
[2024-10-08 05:47] LABS: Basophils % (Auto) 1 % (0-2.5); Eosinophils # (Auto) 0.1 Thou/mm3 (0.0-0.5); Eosinophils % (Auto) 2 % (0-10); Hematocrit 33.5 % (36.0-46.0); Hemoglobin 11.3 g/dL (12.0-16.0); Immature Granulocytes % (Auto) 0 % (0-0); Immature Granulocytes Auto 0.01 Thou/mm3 (0.00-0.00); Lymphocytes # (Auto) 2.7 Thou/mm3 (1.0-4.8); Lymphocytes % (Auto) 41 % (10-50); Mean Corpuscular HGB Conc 33.7 g/dl (31.0-37.0); Mean Corpuscular Hemoglobin 31.7 pg (25.0-35.0); Mean Corpuscular Volume 94 fL (80-100); Monocytes # (Auto) 0.4 Thou/mm3 (0.0-0.8); Monocytes % (Auto) 6 % (0-12); Neutrophils # (Auto) 3.3 Thou/mm3 (1.8-7.7); Neutrophils % (Auto) 50 % (37-80); Nucleated Red Blood Cell % 0 /100 WBC (0); Platelet Count 244 Thou/mm3 (140-440); RDW Standard Deviation 45.2 fL (36.4-46.3); Red Blood Count 3.56 Miln/mm3 (4.00-5.20); White Blood Count 6.6 Thou/mm3 (3.6-11.0)
[2024-10-08 06:31] LABS: Chloride 108 mMol/L (98-107); Potassium 3.3 mMol/L (3.4-5.1); Sodium 137 mMol/L (136-145)
[2024-10-08 07:07] LABS: Alanine Aminotransferase 546 U/L (10-49); Albumin/Globulin Ratio 1.7 (1.2-2.2); Alkaline Phosphatase 123 U/L (46-116); Aspartate Amino Transferase 142 U/L (0-34); BUN/Creatinine Ratio 12 Ratio (12-20); Blood Urea Nitrogen 7 mg/dL (9-23); Calcium 8.9 mg/dL (8.3-10.6); Calcium (Corrected) 8.9 mg/dL (8.5-10.1); Creatinine (Component) 0.6 mg/dL (0.6-1.3); Estimated Creatinine Clearance 117.8 mL/min (>60); Globulin 2.3 gm/dL (2.3-3.5); Glucose 72 mg/dL (74-106); Total Protein 6.3 gm/dL (5.7-8.2); eGFR > 60 See Note
[2024-10-08 07:34] LABS: Anion Gap 8 (7-16); Osmolality,Calculated 270 (275-295)
[2024-10-08 08:00] VITALS: BP 120/70; PULSE 92; RESP 17; TEMP 36.1; O2SAT 99
[2024-10-08 08:12] LABS: HIV (1&2) Antibody Rapid Non-Reactive
[2024-10-08] MEDS: POTASSIUM CHLORIDE 10% 20 MEQ/15 ML UDC 40 MEQ PO (09:54)
[2024-10-08] MEDS: DOCUSATE SOD 100 MG CAPSULE PO ×2 (09:54→20:31)
--- NOTE | 2024-10-08 09:57 | PC.SS ---
This is 34-year-old, , female who presented to the ED for abdominal pain. Patient appeared alert and oriented to self, place and situation. Patient was pleasant. Patient reported that she resides with her , Mo and a [id number]. Patient verified physical address: [address] [place] [address]. Patient reported being independent with all ADLs, no DME use. Patient's PCP is any physician at [facility] in [place]. Patient assigned her , Mo as her medical decision maker. When medically clear, patient will return home, no transportation is needed. Discharge Plan: Home; transportation will be provided by , Mo.
[2024-10-08 11:35] LABS: Bilirubin,Total 0.6 mg/dL (0.3-1.2)
[2024-10-08 12:00] VITALS: BP 116/74; PULSE 93; RESP 17; TEMP 36.2; O2SAT 99
[2024-10-08] MEDS: bisacodyL 5 MG TABEC 10 MG PO (12:18)
[2024-10-08] MEDS: bisacodyL 10 MG SUPP PR (12:18)
--- NOTE | 2024-10-08 13:34 | XR_ITS ---
MRI abdomen, without contrast. MRCP Date and time of exam: October 06, 2024 0903 hrs. Indications: Laparoscopic cholecystectomy intraoperative cholangiogram October 07, 2024, upper abdominal pain postop, 2 small stones in the distal common bile duct: MRCP October 08, 2024 Technique: Multiple axial and coronal images of the abdomen have been obtained with the Siemens 1.5T MRI scanner. Images obtained included T1 weighted transverse images, T2-weighted transverse images, T2-weighted transverse images fat-suppressed, T2 weighted haste fat suppressed transverse images, T1 weighted images, in and out of phase images, T2-weighted coronal images, breath hold, T2 weighted haze coronal images as well as T2 weighted coronal thick slab images, MRCP. Findings: No focal liver lesions Absent gallbladder No common hepatic or common bile duct stones on this study Mild free fluid below the liver Pancreas is not enlarged No splenomegaly No hydronephrosis Aorta normal size Impression: No common hepatic or common bile duct stones noted
--- NOTE | 2024-10-08 13:38 | PD.SURPROG ---
Documentation for date of: 10/08/24 Subjective Subjective Narrative: Patient is seen and examined. She is feeling better. Tolerating clear liquids without nausea or vomiting. Exam Vital Signs Temp Pulse Resp BP Pulse Ox O2 Del Method O2 Flow Rate 97.2 F 93 17 116/74 99 Room Air 2 10/08/24 12:00 10/08/24 12:00 10/08/24 12:00 10/08/24 12:00 10/08/24 12:00 10/08/24 12:00 10/07/24 13:21 Constitutional Constitutional: no acute distress Routine Abdominal Exam Abdominal: Present soft, normoactive bowel sounds and tenderness (Epigastric incisional tenderness. Incisions are clean, dry and intact); Absent distended Assessment & Plan Assessment Additional comments: Postop day #1 status post laparoscopic cholecystectomy with cholangiogram. Liver enzymes improving, clinically much better Plan Advance to low-fat diet for lunch. May discharge home after lunch Procedures Procedures Laparoscopic cholecystectomy with intraoperative cholangiogram
--- NOTE | 2024-10-08 13:40 | ESPR_ITS ---
<Statement entered by Shannon Munroe MD - 10/08/24 15:55> I discussed with and supervised the marketing operations intern physician who took care of this patient. I personally saw and examined the patient and discussed the assessment and plan with the entire medicine team, including my attending Dr. Avila, I agree with most of the assessment and plan as documented below Shannon Munroe M.D. PGY-2 Documentation for date of: 10/08/24 Subjective Subjective Interval history: 10/08/2024: No acute overnight events to report. Patient is postop day 1 from lap cholecystectomy and has advance from clear liquid to low-fat. Patient denies having any concerning symptoms; pain is well-controlled. Patient has not had a bowel movement yet; started on Colace twice daily along with Dulcolax suppository x 1 week and induced bowel movement. Dr. Daniel, gastroenterology, manage repeating MRCP and CRP levels to reassess patient for possible retained stone. Exam Vital Signs Temp Pulse Resp BP Pulse Ox O2 Del Method O2 Flow Rate 97.2 F 93 17 116/74 99 Room Air 2 10/08/24 12:00 10/08/24 12:00 10/08/24 12:00 10/08/24 12:00 10/08/24 12:00 10/08/24 12:00 10/07/24 13:21 Narrative Exam GENERAL: Awake, answering questions in faroese, appears stated age HEENT: NC/AT. Moist mucosa. PERRLA/EOMI. CARDIO: Heart RRR, no obvious murmurs, no JVD. PULM: No coughing or visible SOB. Lungs CTA B/L. GI: Abdomen soft but tender to palpate in RUQ and epigastric area; no tenderness noted elsewhere. Non distended, no rigidity. SKIN/MSK/EXT: No wounds/discoloration/rashes/edema/amputations noted. +Pedal pulses present B/L. NEURO: Oriented x3, auto design detailer strength 5/5, Moves extremities x4. Objective Labs 10/08/24 04:34 10/08/24 04:34 Labs: Laboratory Results - last 24 hr 10/08/24 04:34 WBC 6.6 RBC 3.56 L Hgb 11.3 L Hct 33.5 L MCV 94 MCH 31.7 MCHC 33.7 RDW Std Deviation 45.2 Plt Count 244 Neut % (Auto) 50 Lymph % (Auto) 41 [place] % (Auto) 6 Eos % (Auto) 2 Baso % (Auto) 1 Neut # (Auto) 3.3 Lymph # (Auto) 2.7 [place] # (Auto) 0.4 Eos # (Auto) 0.1 Baso # (Auto) 0.0 Immature Gran # (Auto) 0.01 H Absolute Nucleated RBC 0.00 Immature Gran % 0 Nucleated RBC % 0 Sodium 137 Potassium 3.3 L D Chloride 108 H Carbon Dioxide 21.0 Anion Gap 8 BUN 7 L Creatinine 0.6 Estim Creat Clear Calc 117.8 eGFR > 60 BUN/Creatinine Ratio 12 Glucose 72 L Calculated Osmolality 270 L Calcium 8.9 Corrected Calcium 8.9 Total Bilirubin 0.6 AST 142 H ALT 546 H* Alkaline Phosphatase 123 H D Total Protein 6.3 Albumin 4.0 Globulin 2.3 Albumin/Globulin Ratio 1.7 HIV 1&2 Antibody Rapid Non-Reactive Quality Measures Quality Measures none Assessment & Plan Assessment Current Active Medications: Generic Name Dose Route Start Last Admin Trade Name Freq PRN Reason Stop Dose Admin Acetaminophen 650 mg 10/06/24 11:47 Acetaminophen 325 Mg Tablet PO 11/05/24 11:46 Q6HR PRN Pain 1-3 and/or Fever >100.1 Hydrocodone Bitart/Acetaminophen 1 tab 10/06/24 11:46 Hydrocodone/Apap 5/325 Tablet PO 10/11/24 11:45 Q4HR PRN Pain 4-6 Docusate Sodium 100 mg 10/07/24 21:00 10/08/24 09:54 Docusate Sod 100 Mg Capsule PO 11/06/24 20:59 100 mg BID AMADOR Administration Protocol Morphine Sulfate 1 mg 10/06/24 11:46 10/06/24 13:21 Morphine Sulf Inj 10 Mg/Ml Vial IVP 1 mg Q3HR PRN Administration Pain 7-10 Plan 34-year-old female (1 ) with no significant past medical history presented with acute abdominal pain will be admitted to the hospitalist team; Dr. Daniel (gastroenterology) has been consulted and will plan to do ERCP for choledocholithiasis once patient's pancreatitis has subsided, general surgery and infectious disease are also consulted and are following. #Gallstone pancreatitis, resolving #s/p cholecystectomy #Choledocholithiasis #Cholelithiasis #Elevated liver enzymes, downtrending Patient presented with acute abdominal pain radiating to the back which started on Thursday and has progressively worsened Tbili 2.0, AST 817, ALT 1270, alk phos 186 Gallbladder ultrasound showed cholelithiasis but negative for any cholecystitis MRCP confirmed cholelithiasis with an enlarged common bile duct with small 2 mm stones in the distal common bile duct with abrupt termination of the distal common bile duct Dr. Daniel, GI, consulted appreciate recommendations Dr Chacon did laparoscopic cholecystectomy Plan: Repeat MRCP per Dr. Dnaiel recommendations Repeat CRP Pending hepatitis panel Advancing diet as tolerated, currently on low-fat Continue pain management #Pancreatitis, improving Patient presented with acute abdominal pain radiating to the back with MRCP read showing acute pancreatitis Lipase 126 Huntington's criteria of 1 severe pancreatitis unlikely based off the following In the ED, patient recieved x1 Zosyn, a total of 5mg of morphine and 1L of LR Plan: Off IV fluids Pain controlled with multimodal analgesia #Electrolyte abnormalities, resolved Patient has low potassium secondary to acutely ill status and poor p.o. intake secondary to pain Plan: Replete as needed Will monitor with a.m. labs Hospital Management: Lines: PIV Bowel regimen: Colace twice daily, Dulcolax suppository x 1 Diet: Low-fat GI prophylaxis: Not needed DVT prophylaxis: Heparin subq Dispo:s/p cholecystectomy. Repeat MRCP to rule out retained stone Code: Full Patient seen and examined with attending Dr. Avila and senior resident Dr. Shaneka Gifford, PGY-1 Attending Provider Attestation/Addendum I have examined the patient, reviewed labs and imaging findings, discussed the case with the resident(s), and reviewed entered orders. I agree with the plan of care as outlined in this note, with these additional summaries/recommendations: Patient seen at bedside. No acute overnight events. Patient is postop day #1 status post laparoscopic cholecystectomy with intraoperative cholangiogram. Intraoperative cholangiogram was negative for common hepatic or common bile duct stones. Patient was diagnosed with gallstone pancreatitis and choledocholithiasis as well as transaminitis on admission. Patient appears to have passed the stone. No evidence of hyperbilirubinemia. LFTs and ALP continue to downtrend. Patient reports her pain is currently controlled and we will advance to low-fat diet per surgical recommendations. Infectious disease was consulted on admission although no need for antibiotics at this time. Case was discussed with gastroenterology and recommends repeating MRCP and CRP. Patient updated on the plan and in agreement. Repeat hematology and chemistry panel in AM. Dr. Avila
[2024-10-08 15:11] VITALS: BMI 23.8
[2024-10-08 16:00] VITALS: BP 119/68; PULSE 89; RESP 18; TEMP 36.3; O2SAT 98
[2024-10-08 20:00] VITALS: BP 119/80; PULSE 90; RESP 18; TEMP 36.2; O2SAT 98
[2024-10-09] VITALS: BP 119/77; PULSE 86; RESP 16; TEMP 36.3; O2SAT 97
[2024-10-09 01:00] LABS: Hepatitis A Antibody IgM Non Reactive (Non React); Hepatitis B Core Antibody IgM Non Reactive (Non React); Hepatitis B Surface Antigen Non Reactive (Non React); Hepatitis C Antibody Non Reactive (Non React)
[2024-10-09 04:00] VITALS: BP 126/83; PULSE 97; RESP 18; TEMP 36.2; O2SAT 98
[2024-10-09 06:25] LABS: Basophils # (Auto) 0.1 Thou/mm3 (0.0-0.2); Basophils % (Auto) 1 % (0-2.5); Eosinophils # (Auto) 0.2 Thou/mm3 (0.0-0.5); Eosinophils % (Auto) 2 % (0-10); Hematocrit 34.9 % (36.0-46.0); Hemoglobin 11.9 g/dL (12.0-16.0); Immature Granulocytes % (Auto) 0 % (0-0); Immature Granulocytes Auto 0.03 Thou/mm3 (0.00-0.00); Lymphocytes # (Auto) 2.3 Thou/mm3 (1.0-4.8); Lymphocytes % (Auto) 30 % (10-50); Mean Corpuscular HGB Conc 34.1 g/dl (31.0-37.0); Mean Corpuscular Hemoglobin 31.6 pg (25.0-35.0); Mean Corpuscular Volume 93 fL (80-100); Monocytes # (Auto) 0.5 Thou/mm3 (0.0-0.8); Monocytes % (Auto) 7 % (0-12); Neutrophils # (Auto) 4.7 Thou/mm3 (1.8-7.7); Neutrophils % (Auto) 61 % (37-80); Nucleated Red Blood Cell % 0 /100 WBC (0); Platelet Count 249 Thou/mm3 (140-440); RDW Standard Deviation 45.1 fL (36.4-46.3); Red Blood Count 3.77 Miln/mm3 (4.00-5.20); White Blood Count 7.7 Thou/mm3 (3.6-11.0)
[2024-10-09 06:30] LABS: Alanine Aminotransferase 429 U/L (10-49); Albumin, Serum 4.5 gm/dL (3.5-5.0); Albumin/Globulin Ratio 1.7 (1.2-2.2); Alkaline Phosphatase 119 U/L (46-116); Anion Gap 10 (7-16); Aspartate Amino Transferase 96 U/L (0-34); BUN/Creatinine Ratio 10 Ratio (12-20); Bilirubin,Total 0.5 mg/dL (0.3-1.2); Blood Urea Nitrogen 7 mg/dL (9-23); C-Reactive Protein 1.6 mg/dL (0.0-0.9); Calcium 9.3 mg/dL (8.3-10.6); Calcium (Corrected) 9.3 mg/dL (8.5-10.1); Carbon Dioxide 22.1 mMol/L (20.0-31.0); Chloride 105 mMol/L (98-107); Creatinine (Component) 0.7 mg/dL (0.6-1.3); Estimated Creatinine Clearance 96.9 mL/min (>60); Globulin 2.7 gm/dL (2.3-3.5); Glucose 83 mg/dL (74-106); Osmolality,Calculated 270 (275-295); Potassium 3.8 mMol/L (3.4-5.1); Sodium 137 mMol/L (136-145); Total Protein 7.2 gm/dL (5.7-8.2); eGFR > 60 See Note
[2024-10-09 08:00] VITALS: BP 115/66; PULSE 88; RESP 16; TEMP 36.1; O2SAT 99
[2024-10-09] MEDS: DOCUSATE SOD 100 MG CAPSULE PO (08:03)
--- NOTE | 2024-10-09 10:05 | CHAP ---
Patient was visited by the Spiritual Care Volunteer from whom they received communion. (Volunteer was in the hospital from 09:24-10:05)
[2024-10-09 11:20] VITALS: BP 136/83; PULSE 90; RESP 14; TEMP 36.4; O2SAT 100
--- NOTE | 2024-10-09 12:09 | ESDS_ITS ---
<Statement entered by Shannon Munroe MD - 10/09/24 14:53> I discussed with and supervised the epidemiology intern physician who took care of this patient. I personally saw and examined the patient and discussed the assessment and plan with the entire medicine team, including my attending , I agree with most of the assessment and plan as documented below Shannon Munroe M.D. PGY-2 Planned Discharge Date 10/09/24 DS: Providers Provider Date of admission: 10/06/24 11:41 Primary care physician: Physician No Primary/Family Admitting Provider: Rory Avila MD Attending Provider on Admission: Rory Avila MD Consults: 10/06/24 10:02 Consult to Gastroenterology Stat Comment: Cholecystitis and Pancreatitis Consulting Provider: Rick Marks 10/06/24 14:08 Consult to General Surgery Routine Comment: Gallstone pancreatitis Consulting Provider: Rober Chacon 10/07/24 10:04 Consult to Infectious Diseases Routine Comment: Consulting Provider: Conner Mercado Attending Provider on DC: Christiano Gifford MD Discharging Provider: Christiano Gifford MD DS: Diagnosis Problem List Completed Was Problem List Reviewed/Reconciled?: Yes Hospital Course Hospital Course Hospital course: 34-year-old female with no significant past medical history presented to the ED on 10/05 with acute abdominal pain. In the ED, patient's vitals were within normal limits; however, lipase, liver enzymes and bilirubin were elevated, gallbladder ultrasound showed cholelithiasis but negative for any cholecystitis and an MRCP confirmed cholelithiasis with an enlarged common bile duct with small 2 mm stones in the distal common bile duct. Patient was admitted with gastroenterology following and initial plans to do ERCP for choledocholithiasis; however, patient also had pancreatitis which led to general surgery consultation. Infectious disease was also consulted but patient did not require antibiotics as pancreatitis was nonnecrotizing. General surgery eventually proceeded with laparoscopic cholecystectomy with intraoperative cholangiogram and the patient did not have any complications postop. Patient made progressive improvement throughout the following days; moreover, gastroenterology recommended repeat MRCP to rule out any retained stones. Patient's laboratory results along with clinical signs and symptoms improved and the patient will be discharged with the following recommendations. Please follow-up with your PCP within 1 week and repeat labs; screen for resolution of elevated liver enzymes Please follow-up with Dr. Chacon, General Surgery, within 1-2 weeks Please follow-up with Dr. Daniel, Gastroenterology, within 1-2 weeks Take Amagon and Ibuprofen for pain as needed Return to the ED immediately if you develop new fever, worsening abdominal pain or any chest pain/shortness of breath Continue eating low fat diet; avoid alcohol and smoking tobacco (Translated to Kazakh) Hospital Diagnosis: #Gallstone pancreatitis, resolved s/p cholecystectomy #Elevated liver enzymes, downtrending #Pancreatitis, resolved #Electrolyte abnormalities, resolved Christiano Gifford, PGY-1 Status at Discharge Overall status at discharge: patient is progressing back to baseline Time Spent with Patient Time attestation: Total time spent providing and/or coordinating discharge services: 45 minutes Time spent: Greater than 30 minutes Exam Vital Signs Temp Pulse Resp BP Pulse Ox O2 Del Method O2 Flow Rate 97.0 F 88 16 115/66 99 Room Air 2 10/09/24 08:00 10/09/24 08:00 10/09/24 08:00 10/09/24 08:00 10/09/24 08:00 10/09/24 08:00 10/07/24 13:21 Narrative Exam GENERAL: Awake, answering questions in setswana, appears stated age HEENT: NC/AT. Moist mucosa. PERRLA/EOMI. CARDIO: Heart RRR, no obvious murmurs, no JVD. PULM: No coughing or visible SOB. Lungs CTA B/L. GI: Abdomen soft but tender to palpate in RUQ and epigastric area; no tenderness noted elsewhere. Non distended, no rigidity. SKIN/MSK/EXT: No wounds/discoloration/rashes/edema/amputations noted. +Pedal pulses present B/L. NEURO: Oriented x3, area supervisor strength 5/5, Moves extremities x4. Discharge Plan Plan Patient Disposition: HOME (Self Care) Patient condition on transfer: Stable Prescriptions/Referrals Prescriptions/Med Rec: New hydrocodone-acetaminophen 5-325 mg Tablet 1 tab PO Q6H MDD 4 PRN (Reason: pain (scale score 7-10)) Qty: 15 0RF docusate sodium 100 mg Capsule 100 mg PO BID Qty: 30 0RF ibuprofen 600 mg tablet 600 mg PO Q8H PRN (Reason: pain (scale score 4-6)) Qty: 15 0RF Referrals: Rober Chacon MD [Physician] - No Primary/Family,Physician [Primary Care Provider] - Rick Marks MD [Physician] - Patient/Caregiver Discharge Instructions Discharge Activity: activity as tolerated Other Discharge Activity Instructions:: Please follow-up with your PCP within 1 week and repeat labs; screen for resolution of elevated liver enzymes Please follow-up with Dr. Chacon, General Surgery, within 1-2 weeks Please follow-up with Dr. Daniel, Gastroenterology, within 1-2 weeks Take Amagon and Ibuprofen for pain as needed Return to the ED immediately if you develop new fever, worsening abdominal pain or any chest pain/shortness of breath Sundya un seguimiento con pritchard PCP dentro de 1 semana y repita los an?lisis de labor atorio; pantalla para resoluci?n de enzimas hep?sujit elevadas Sunday un seguimiento con el Dr. Chacon, Cir[facility]?a General, dentro de 1 a 2 semanas. Sunday un seguimiento con el Dr. Daniel, Gastroenter?logo , dentro de 1 a 2 semanas. Gaston Amagon y Ibuprofen para el dolor seg?n sea necesario Regrese al servicio de urgencias inmediatamente si presenta nueva fiebre, empeoramiento del dolor abdominal o cualquier dolor en el pecho/dificultad para respirar. Other Discharge Diet Instructions: Continue eating low fat diet; avoid alcohol and smoking tobacco Contin?e con gustavo dieta baja en grasas; Evite el alcohol y fumar tabaco. Education Materials: Preventing Surgical Site Infections Print Language: Kazakh Activity Restrictions/Additional Instructions: May shower in 24 hours. Avoid lifting, straining, pulling or pushing for 4 weeks. May take over the counter laxatives if no bowel movement in 2 days. Follow up with Dr. Chacon in 2 weeks, call [phone] for an appointment. Continue low-fat diet for a week then advance diet as tolerated. Stand Alone Forms: Lillie Award Info., Patient Portal Info Letter Discharge Order Discharge Orders: Discharge (Routine); Ordered 10/09/24 Ordered By: Shannon Munroe Quality Discharge Quality Measures VTE prophylaxis MD Attestestation MD Attestation I have examined the patient, reviewed labs and imaging findings, discussed the case with the resident(s), and reviewed entered orders. I agree with the plan of care as outlined in this note. Dr. Avila
== END 2024-10-09 11:35 | disposition home or self-care (01) | DRG 263 ==
LOC: SERX 10-06 10:12 → SERHOLD 10-06 11:52 → S3NX 10-06 14:35
PROVIDERS: Emergency Medicine; Internal Medicine Gastroenterology; Internal Medicine Infectious Disease; Physician Assistant; Surgery; Admitting Provider Student in an Organized Health Care Education/Training Program; Emergency Provider Emergency Medicine; Visit Provider Student in an Organized Health Care Education/Training Program
PROC: 0FT44ZZ Resection of Gallbladder, Percutaneous Endoscopic Approach (ICD-10-PCS; CPT 47562; principal; 2024-10-07 12:00)
DX: K85.10 Biliary acute pancreatitis without necrosis or infection (principal); R74.8 Abnormal levels of other serum enzymes; K80.64 Calculus of gallbladder and bile duct with chronic cholecystitis without obstruction
CPT/HCPCS: 36415; 74300; 76705; 80053; 80074; 81001; 81025; 82330; 83615; 83690; 83735; 84100; 84478; 85025; 85610; 86140; 86703; 87040; 96365; 96375; 96376; 99285; A4217; A4649; J0131; J0694; J0696; J1643; J1885; J2185; J2250; J2270; J2543; J2704; J3010; J3490; J7030; J7050; J7121; S8037; 74181; A9270; J1644; J1805